=== PATIENT | female | born 1930 | race Caucasian/White ===

== ENCOUNTER 2018-02-23 11:47 | Emergency (ER) | payer OTHER ==
[~2018-02-23] VITALS: Ht 152.4 cm; Wt 77.0 kg
[~2018-02-23 11:47] MED LIST: ADVIL,NUPRIN,M200 MG; KLOR-CON20 MEQ PO; LANSOPRAZOLE30 MG PO; LOPRESSOR50 MG PO; MACU SUPPORT PO; METOPROLOL TART50 MG PO; MICROZIDE12.5 M1 PO; MOTRIN IB200 MG PO; PREVACID30 MG PO; TOPROL XL50 MG PO
[2018-02-23 12:42] LABS: HEMATOCRIT 38.1 % (36.0-46.0); HEMOGLOBIN 13.4 G/DL (11.9-15.5); MCH 30.7 PG (29.0-34.0); MCHC 35.2 G/DL (30.0-36.0); MCV 87.4 FL (83-99); RBC DIS.WIDTH-CV 13.1 % (11.8-14.6); RBC DIS.WIDTH-SD 42.1 % (39-53); RED BLOOD COUNT 4.36 M/uL (3.80-5.20); WHITE BLOOD COUNT 7.2 K/uL (4.1-10.2)
[2018-02-23 12:53] LABS: CHLORIDE 95 mEq/L (99-109); POTASSIUM 3.7 mEq/L (3.7-5.4); SODIUM 131 mEq/L (136-147)
[2018-02-23 12:55] LABS: GLUCOSE 98 mg/dL (70-99)
[2018-02-23 12:59] LABS: CREATININE 1.1 mg/dL (0.6-1.3); GFR ESTIMATE (CALCULATED) 50 mL/min/
[2018-02-23 13:00] LABS: UREA NITROGEN (BUN) 14 mg/dL (9-23)
[2018-02-23 13:08] LABS: APPEARANCE CLEAR ((CLEAR)); BILIRUBIN NEGATIVE; BLOOD NEGATIVE; COLOR YELLOW ((YELLOW)); GLUCOSE (STRIP) NEGATIVE; KETONES 20; LEUKOCYTES TRACE; NITRITE NEGATIVE; PROTEIN (STRIP) 30; SPECIFIC GRAVITY 1.015 (1.000-1.030); UROBILINOGEN 0.2 MG/DL (0.2-1.0)
[2018-02-23 13:16] LABS: BACTERIA RARE /HPF; EPITHELIAL CELLS RARE /HPF; MUCUS TRACE /LPF; RED BLOOD CELLS 0-5 /HPF (0-5); UCUL ADDED? YES
[2018-02-23 13:47] LABS: PLAT.SUFFICIENCY ADEQUATE; PLATELET COUNT 184 K/uL (156-360)
[2018-02-23 16:49] LABS: TROP-I INTERPRETATION NEGATIVE; TROPONIN-I 0.02 ng/mL (0.0-0.30)
[2018-02-23 19:50] VITALS: BP 118/85
== END 2018-02-23 20:23 | disposition home or self-care (01) ==
LOC: EME 11:47
PROVIDERS: Emergency Medicine
DX: R53.1 Weakness (principal); K92.1 Melena; G62.9 Polyneuropathy, unspecified; R42 Dizziness and giddiness; R06.00 Dyspnea, unspecified; R68.2 Dry mouth, unspecified; I10 Essential (primary) hypertension; K44.9 Diaphragmatic hernia without obstruction or gangrene
CPT/HCPCS: 70450; 71046; 74177; 80048; 81003; 84484; 85027; 87086; 93005; 99281; 99285; C9113; J7040